=== PATIENT | male | born 1950 | race Caucasian/White ===

== ENCOUNTER → 2016-06-14 | Outpatient (CLI) | payer OTHER, MEDICAID ==
[~2016-06-14] MED LIST: GADOBUTROL 10 ML VIAL IVP ONE
[2016-06-14 10:12] LABS: CREATININE 0.6 mg/dL (0.7-1.3); GLOMERULAR FILTRATION RATE > 60
== END ==
LOC: FIMAGING 09:10
PROVIDERS: ATTEND Physician Assistant Medical
DX: M50.322 Other cervical disc degeneration at C5-C6 level (principal); M50.323 Other cervical disc degeneration at C6-C7 level; M50.20 Other cervical disc displacement, unspecified cervical region; M99.71 Connective tissue and disc stenosis of intervertebral foramina of cervical region; M48.02 Spinal stenosis, cervical region
CPT/HCPCS: 72156; A9585

== ENCOUNTER 2016-10-21 07:15 | Observation (INO) | payer OTHER, MEDICAID ==
--- NOTE | 2016-10-18 17:15 | GHP ---
[f rep st] PREOP HISTORY AND PHYSICAL DATE OF ADMISSION: 10/21/2016 PREOPERATIVE DIAGNOSIS: Left shoulder impingement, possible full-thickness rotator cuff tear, left. PLANNED PROCEDURE: Decompression versus rotator cuff repair, left shoulder. HISTORY OF PRESENT ILLNESS: The patient is a 66-year-old male who had a left total hip arthroplasty . He fell a few days postoperatively and sustained a periprosthetic fracture. This was revised and fixed. He then developed a postoperative wound infection that was washed out and I and D'd. Throu gh all this, he was having worsening shoulder pain. He has now sufficiently rehabbed his left hip r eplacement and revision. We imaged his bilateral shoulders, which did show partial thickness rotato r cuff tears and impingement anatomy. We tried cortisone injections and physical therapy; however, at this point, he is not very functional. He lives alone, and the decision has been made to proceed with decompression, possible cuff repair on the left. PAST MEDICAL HISTORY: Hypertension and COPD. PAST SURGICAL HISTORY: Left total hip in December of 2015 and then a revision in January of 2016. MEDICATIONS: Flexeril, diazepam, hydrochlorothiazide, lisinopril. ALLERGIES: Vicodin. REVIEW OF SYSTEMS: He gets a little bit of shortness of breath with exertion. Otherwise, review of systems is unremarkable. PHYSICAL EXAMINATION: VITAL SIGNS: Blood pressure is 149/93, heart rate 75, respiratory rate is 14 on room air. GENERAL: He is alert and oriented x3. HEENT: Normocephalic, atraumatic. Extraocul ar muscles intact. NECK: Supple. There is no lymphadenopathy. No JVD. CHEST: Clear to ausculta tion. CARDIOVASCULAR: Regular rate and rhythm. ABDOMEN: Soft, nontender, nondistended. EXTREMIT IES: Exam focused on the left extremity. He might have a little bit of supraspinatus atrophy on th e left. Prominence over the AC joint. Active range of motion to the left shoulder. He has full ex tension, 150 degrees of forward flexion, 60 degrees of internal and external rotation. Rotator cuff strength supraspinatus is 4- out of 5, infraspinatus 4- out of 5, subscapularis 4/5. He has a posi tive impingement sign, 1+ sulcus sign, negative apprehension sign. IMAGING: MRI is reviewed of the left shoulder. It does show partial thickness tearing of the supra spinatus tendon. He has a type 2 acromion with subacromial bursitis. Biceps tendon is in the groov e. There may be some intra-articular fraying and tearing at the anchor. ASSESSMENT: Left shoulder impingement, possible full-thickness cuff tear. PLAN: Long discussion with the patient. He is having a very difficult time with this shoulder and managing to remain independent with it. I think he did not get as much relief as I was hoping with the cortisone injection and physical therapy. Therefore, I think we should proceed with decompressi on, possible cuff repair of the left shoulder. I did explain to Elmo that if we do a rotator cuff re pair, he will need to be in a sling with abduction pillow for 4-6 weeks postoperatively. He underst ands that. We will start physical therapy a week after surgery. Other risks including infection an d continued pain were discussed. He understands these risks and wished to proceed. We will plan on surgery next Friday at the hospital. /[id number]/MODL
[2016-10-21] MEDS ORDERED: ceFAZolin 2 GM/DEXTROSE 100 ML IV ONE (08:12)
[2016-10-21] MEDS ORDERED: LR 1,000 ML IV ONE (08:26)
--- NOTE | 2016-10-21 08:28 | PDANEPAE ---
ANE History of Present Illness 66 year old male with L shoulder impingement and possible rotator cuff tear. ANE Past Medical History - Cardiovascular History Hx Hypertension: Yes Hx Arrhythmias: No Hx Chest Pain: No Hx Coronary Artery / Peripheral Vascular Disease: No Hx CHF / Valvular Disease: No Hx Palpitations: No Cardiovascular History Comment: CAD. BP controlled w/ doubled LIsinipril at 40mg. - Pulmonary History Hx COPD: Yes Hx Asthma/Reactive Airway Disease: No Hx Recent Upper Respiratory Infection: No Hx Oxygen in Use at Home: No O2 in Use at Home (L/minute): none Hx Sleep Apnea: No Sleep Apnea Screening Result - Last Documented: Positive Pulmonary History Comment: DIAGNOSED WITH COPD LAST YR. Pneumonia x2 2014,2016. - Neurologic History Hx Cerebrovascular Accident: No Hx Seizures: No Hx Dementia: No - Endocrine History Hx Diabetes: No Hypothyroid: No Hyperthyroid: No - Renal History Hx Renal Disorders: No - Liver History Hx Hepatic Disorders: No - Neurological & Psychiatric Hx Hx Neurological and Psychiatric Disorders: No - Cancer History Hx Cancer: No - Congenital Disorder History Hx Congenital Disorders: No - GI History Hx Gastrointestinal Disorders: No - Other Health History Other Health History: L shoulder pain - Chronic Pain History Chronic Pain: Yes (LOWER BACK AND BOTH HIPS) - Surgical History Prior Surgeries: L hip surgeries x3 (1st fx- then Septic Hip /tx w/ Doxycycline daily) ANE Review of Systems Review of Systems: No cough/fever/URI in past 2 weeks. - Exercise capacity METS (RN): 4 METS - Systems Constitutional: Reports: no symptoms Respiratory: Reports: no symptoms Gastrointestinal: Reports: no symptoms ANE Patient History - Allergies Allergies/Adverse Reactions: acetaminophen [From Vicodin] Allergy (Verified 10/18/16 16:56) hydrocodone [From Vicodin] Allergy (Verified 10/18/16 16:56) - Home Medications Home medications: home medication list seen and reviewed Home Medications: Aspirin [Aspirin 81mg (*)] 81 mg PO DAILY 01/31/16 [Last Taken 01/30/16] Multivitamins [Multivitamin (*)] 1 each PO HS 01/31/16 [Last Taken 01/29/16] Vitamin B Complex [B Complex] 1 each PO HS 01/31/16 [Last Taken 01/29/16] oxyCODONE IR [Oxycodone Ir (*)] 10 mg PO QID PRN 01/31/16 [Last Taken 01/30/16 12:00] Doxycycline Hyclate [Vibramycin 100 MG (*)] 100 mg PO DAILY 10/15/16 [Last Taken Unknown] Lisinopril [Zestril 40 mg (*)] 40 mg PO DAILY 10/15/16 [Last Taken Unknown] - Smoking Hx Smoking Status: Former smoker ANE Labs/Vital Signs - Labs - BMP Sodium: reviewed from August. Glucose: elevated (118) in August. - Vital Signs Blood Pressure: 181/97 (Pt reports his BP was lower at home, 140s/80s.) Heart Rate: 78 Respiratory Rate: 20 O2 Sat (%): 98 Height: 177.8 cm Weight: 70.307 kg ANE Physical Exam - Airway Neck exam: FROM Mallampati Score: Class 2 Mouth exam: dentures - Pulmonary Pulmonary: no respiratory distress, clear to auscultation - Cardiovascular Cardiovascular: regular rate and rhythym - ASA Status ASA Status: II ANE Anesthesia Plan Regional Anesthesia: single shot NB
[2016-10-21 08:40] VITALS: PULSE 78
[2016-10-21] MEDS ORDERED: MIDAZOLAM 2 MG/2 ML VIAL ONE (08:45)
--- NOTE | 2016-10-21 08:50 | PDHPUP ---
History & Physical Update H&P update statement: This history and physical update is based on an assessment of the patient which was completed after admission or registration (within 24 hours), but prior to the surgery/procedure. H&P update: H&P reviewed & patient examined, no change in patient's condition since H&P completed
[2016-10-21] MEDS ORDERED: MIDAZOLAM 2 MG/2 ML VIAL IVP ONE (08:56)
[2016-10-21] MEDS ORDERED: ROPIVACAINE HCL 150 MG/30 ML INJ ONE (09:05)
[2016-10-21] MEDS ORDERED: DEXAMETHASONE 4 MG/ML VIAL ONE ×2 (09:05)
[2016-10-21] MEDS ORDERED: fentaNYL 100 MCG/2 ML INJ ONE (09:11)
[2016-10-21] MEDS ORDERED: PROPOFOL/EMULSION 500 MG/50 ML BOTTLE IV ONE (09:19)
[2016-10-21] MEDS ORDERED: LIDO/EPI 1% **for epidural** 30 ML SDV ONE (09:21)
[2016-10-21] MEDS ORDERED: DIAZEPAM 10 MG/2 ML SYR ONE (09:41)
[2016-10-21] MEDS ORDERED: OXYCODONE/APAP 5/325 TAB PO PRN (11:03)
[2016-10-21] MEDS ORDERED: ENALAPRILAT DIHYDRATE 1.25 MG/ML VIAL IVP PRN (11:03)
[2016-10-21] MEDS ORDERED: ACETAMINOPHEN 500 MG TAB PO PRN (11:03)
[2016-10-21] MEDS ORDERED: PROMETHAZINE HCL 25 MG/ML INJ IVP PRN (11:03)
[2016-10-21] MEDS ORDERED: LR 500 ML IV PRN (11:03)
[2016-10-21] MEDS ORDERED: ONDANSETRON 4 MG/2 ML VIAL IVP PRN (11:03)
[2016-10-21] MEDS ORDERED: fentaNYL 100 MCG/2 ML INJ IVP PRN ×2 (11:03)
[2016-10-21] MEDS ORDERED: NALOXONE HCL 0.4 MG/ML INJ IVP PRN (11:03)
--- NOTE | 2016-10-21 11:31 | POSTOPPROG ---
Post Op Note Date of Operation: 10/21/16 Surgeon: Danis Butt Pin Ticket Machine Operator: Matias Fox Anesthesiologist: Nelson Anesthesia: GET(General Endotracheal) Pre-op Diagnosis: Lt RC tear Post-op Diagnosis: same Procedure: RC repair, SAD/DCE, Labral debridement Inf/Abcess present in the surg proc area at time of surgery?: No EBL: Minimal Complications: none
--- NOTE | 2016-10-21 11:34 | POSTANESTH ---
Post Anesthetic Evaluation Cardiovascular Status: Normal, Stable Respiratory Status: Normal, Stable Level of Consciousness/Mental Status: Can Participate in Eval Pain Control: Adequate, Prn Tx Ordered Nausea/Vomiting Control: Adequate, Prn Tx Ordered Complications Possibly Related to Anesthesia: None Noted
[2016-10-21 12:06] VITALS: RESP 14
[2016-10-21 12:31] VITALS: TEMP 97.5
[2016-10-21 13:36] VITALS: BP 155/89; O2SAT 94
--- NOTE | 2016-10-21 22:00 | GOP ---
[f rep st] OPERATIVE REPORT DATE OF OPERATION: 10/21/2016 SURGEON: Danis Butt MD COMMISSIONER OF RELOCATION SERVICES: Matias Fox PA-C. ANESTHESIA: Dr. Nelson, interscalene block with general. PREOPERATIVE DIAGNOSIS: Left shoulder rotator cuff tear. POSTOPERATIVE DIAGNOSIS: Left shoulder rotator cuff tear. PROCEDURE PERFORMED: 1. Arthroscopic rotator cuff repair. 2. Subacromial decompression. 3. Distal clavicle excision. 4. Labral debridement. FINDINGS: ESTIMATED BLOOD LOSS: Minimal. DESCRIPTION OF PROCEDURE: After appropriate informed consent was obtained, patient taken operating room, placed supine on the operating table. Timeout was performed. Patient was identified, correct site was identified. He received 2 g of Ancef preoperatively. Dr. Nelson administered an intersc maggi block followed by general endotracheal tube anesthesia. The patient was then positioned in th e beach-chair position with all bony prominences well padded. Left upper extremity was prepped and draped in the usual sterile fashion. I instilled the shoulder with 30 mL of normal saline and 30 mL of 1% lidocaine with epinephrine to a standard posterior portal. I made a small neftali incision, introduced the camera through a standard posterior portal, then obtained a standard anterior portal under direct visualization. Placed a 4.5 mm working cannula through that portal. Looking through the shoulder, he had extensive synovitis. The labrum was torn and frayed superiorly. The articular cartilage was in good shape with only mil d fraying on the glenoid. I gently debrided back the torn labrum with a motorized shaver. We then repositioned the camera in the subacromial space. Placed the anterior cannula superiorly into the subacromial space and obtain ed a standard lateral portal under direct visualization. Placed an 8 mm plastic cannula through nohemi t portal. Looking at the rotator cuff, the footprint was intact, however, had a split tear midsubst ance of the supraspinatus. There were few fibers left anteriorly. Cuff tissue overall was in poor quality. Type 2 acromion. Using the electrocautery device and bur, I cleaned up the subacromial space. We then placed sutures in a [id number] fashion, repaired the cuff back side to side. Those suture limbs were brought ou t through the lateral portal, and I placed 1 lateral anchor to back up my repair. Suture ends were cut. I then performed a subacromial decompression working through the lateral portal and then perfo rmed a distal clavicle excision working through the anterior superior portal. Instruments were withdrawn. I placed PRP 5 mL right at the [id number] repair and at the footprint . Portal incisions were closed with 3-0 nylon. I instilled 20 mL 0.5% Marcaine with epinephrine in to the shoulder joint. Sterile dressing was applied. Sling and abduction pillow were applied. Pat ient was awakened from anesthesia, taken to the recovery room in satisfactory condition. There were no immediate intraoperative complications. Matias Fox' assistance was required throughout the en tire case. COMPLICATIONS: None. DRAINS: None. IMPLANTS USED: Arthrex SwiveLock anchor 4.5 mm x1. HISTORY: The patient is a 66-year-old male with shoulder pain, failed to improve with conservative management. MRI was obtained which showed a possible rotator cuff tear, as well as impingement meghana sigrid of the shoulder. Decision was made to proceed with a decompression, possible cuff repair. /[id number]/MODL
== END 2016-10-21 13:45 | disposition home or self-care (01) ==
LOC: F3N 07:49
PROVIDERS: ADMIT Orthopaedic Surgery; ATTEND Orthopaedic Surgery
PROC: 0LQ24ZZ Repair Left Shoulder Tendon, Percutaneous Endoscopic Approach (ICD-10-PCS; principal; 2016-10-21 10:00)
PROC: 0PBB4ZZ Excision of Left Clavicle, Percutaneous Endoscopic Approach (ICD-10-PCS; principal; 2016-10-21 10:00)
PROC: 0MB24ZZ Excision of Left Shoulder Bursa and Ligament, Percutaneous Endoscopic Approach (ICD-10-PCS; principal; 2016-10-21 10:00)
DX: M75.102 Unspecified rotator cuff tear or rupture of left shoulder, not specified as traumatic (principal); M75.42 Impingement syndrome of left shoulder; I10 Essential (primary) hypertension
CPT/HCPCS: 29826; 29827; C1713; J0171; J0690; J1100; J2250; J2704; J2795; J3010

== ENCOUNTER → 2017-01-31 | Outpatient (CLI) | payer OTHER, MEDICAID | LOC: BHFA 14:00 | PROVIDERS: ATTEND Internal Medicine Cardiovascular Disease | DX: I73.9 Peripheral vascular disease, unspecified (principal) ==

== ENCOUNTER → 2017-02-20 | Outpatient (CLI) | payer OTHER, MEDICAID ==
[~2017-02-20] MED LIST changes: -GADOBUTROL 10 ML VIAL IVP ONE; +IOPAMIDOL (ISOVUE 370) 100 ML BTL IV ONE
== END ==
LOC: FIMAGING 11:42
PROVIDERS: ATTEND Surgery
DX: I70.203 Unspecified atherosclerosis of native arteries of extremities, bilateral legs (principal)
CPT/HCPCS: 75635; Q9967

== ENCOUNTER 2017-07-14 10:27 | Day surgery (SDC) | payer OTHER, MEDICAID ==
--- NOTE | 2017-07-13 08:34 | GHP ---
[f rep st] PREOP HISTORY AND PHYSICAL DATE OF ADMISSION: 07/14/2017 DATE OF PLANNED PROCEDURE: 07/14/2017. ADMISSION DIAGNOSIS: Right shoulder rotator cuff tear. PLANNED PROCEDURE: Rotator cuff repair. HISTORY OF PRESENT ILLNESS: The patient is a 67-year-old male, who has had longstanding bilateral shoulder pain. We have managed it with injections and physical therapy. However, he is having worsening pain and weakness in the right shoulder, he has undergone a left rotator cuff repair and done well with that. MRI showed a full-thickness rotator cuff tear on the right, and the decision has been made to proceed with a rotator cuff repair. PRIOR MEDICAL HISTORY: Hypertension, COPD, peripheral vascular disease. PRIOR SURGICAL HISTORY: Total hip arthroplasty with revision surgery, and followup I and D, for superficial infection. MEDICATIONS: Amlodipine 5 mg, gabapentin 100 mg, lisinopril 40 mg, hydrochlorothiazide 25 mg, oxycodone 10 mg. ALLERGIES: Vicodin. SOCIAL HISTORY: He lives alone. Does use alcohol daily. Former smoker, he smoked 1 pack per day. REVIEW OF SYSTEMS: GENERAL: No shortness of breath or chest pain. VITAL SIGNS : He is 5 feet 10 inches tall, weighs 160 pounds. Blood pressure is 142/89, heart rate 91, respiratory rate is 16, on room air. GENERAL: Alert and oriented x3. HEENT: Normocephalic, atraumatic. Extraocular muscles intact. NECK: Supple. There is no lymphadenopathy. No JVD. CHEST: Clear to auscultation. CARDIOVASCULAR: Regular rate and rhythm. ABDOMEN: Soft, nontender, nondistended. EXTREMITIES: Focusing on the right shoulder, does show a little atrophy in the supraspinatus fossa, active range of motion is limited to about 100 degrees forward flexion. Passively, I can get him to 150 degrees. He has 35 degrees of external rotation actively, passively I can get him to 75 degrees. Internal rotation I can get his thumb to L1. Rotator cuff strength, supraspinatus and infraspinatous are both 4-/5. Subscapularis 4+/5. He does have a positive impingement sign. 2+ radial pulse. IMAGING: MRI of the right shoulder performed in August of 2016, show some early degenerative changes in the glenohumeral joint. Near full-thickness tear of the distal supraspinatus tendon. Partial tear of the intra-articular portion of the long head of biceps tendon, and moderate degenerative changes in the AC joint. ASSESSMENT: Full-thickness cuff tear on the right with shoulder impingement. PLAN: Long discussion with the patient, I think initially in 2017, he had a partial tear, I think he has gone on to tear the cuff completely based on his clinical exam, which is the case that happened in the left shoulder. I plan of proceeding with a rotator cuff repair on the right. Decompression of biceps tenodesis. He will be in a sling and abduction pillow for 6 weeks postoperatively. Risks and benefits of the procedure, including infection, blood clots, and need for additional surgery, were all discussed. He understands these risks and wished to proceed. We will plan on surgery Friday at the hospital. /[id number]/MODL MTDD
[2017-07-14] MEDS ORDERED: THROMBIN (BOVINE) 5,000 UNIT VIAL TP ONE (10:50)
[2017-07-14] MEDS ORDERED: BUPIVACAINE/EPI 0.5% 30 ML SDV ONE (10:50)
[2017-07-14] MEDS ORDERED: CALCIUM CHLORIDE 1 GM/10 ML INJ ONE (10:50)
[2017-07-14] MEDS ORDERED: LIDO/EPI 1% **for epidural** 30 ML SDV ONE (10:51)
[2017-07-14] MEDS ORDERED: EPINEPHrine 30 MG/30 ML MDV (0.1 MG/0.1 ML) ONE (10:51)
[2017-07-14] MEDS ORDERED: ceFAZolin 2 GM/SWFI 2 GM/20 ML SYR IVP ONE (11:25)
[2017-07-14] MEDS ORDERED: LIDOCAINE 1% 2 ML INJ ID PRN (11:26)
[2017-07-14] MEDS ORDERED: LR 1,000 ML IV ONE (11:26)
--- NOTE | 2017-07-14 13:55 | PDANEPAE ---
ANE History of Present Illness Patient presents for R rotator cuff repair ANE Past Medical History - Cardiovascular History Hx Hypertension: Yes Hx Arrhythmias: No Hx Chest Pain: No Hx Coronary Artery / Peripheral Vascular Disease: Yes Hx CHF / Valvular Disease: No Hx Palpitations: No Cardiovascular History Comment: severe PVD,CAD - Pulmonary History Hx COPD: Yes Hx Asthma/Reactive Airway Disease: No Hx Recent Upper Respiratory Infection: No Hx Oxygen in Use at Home: No Hx Sleep Apnea: No Sleep Apnea Screening Result - Last Documented: Positive Pulmonary History Comment: DIAGNOSED WITH COPD LAST YR - Neurologic History Hx Cerebrovascular Accident: No Hx Seizures: No Hx Dementia: No - Endocrine History Hx Diabetes: No - Renal History Hx Renal Disorders: No - Liver History Hx Hepatic Disorders: No - Neurological & Psychiatric Hx Hx Neurological and Psychiatric Disorders: Yes Neurological / Psychiatric History Comment: POLYNEUROPATHY - Cancer History Hx Cancer: No - Congenital Disorder History Hx Congenital Disorders: No - GI History Hx Gastrointestinal Disorders: No - Other Health History Other Health History: L shoulder pain - Chronic Pain History Chronic Pain: Yes (BILAT HIPS LOWER BACK) - Surgical History Prior Surgeries: left hip 3 surgeries including infection. left shoulder ANE Review of Systems Review of Systems: - Exercise capacity METS (RN): 4 METS ANE Patient History - Allergies Allergies/Adverse Reactions: hydrocodone [From Vicodin] Allergy (Verified 06/27/17 10:32) nausea - Home Medications Home medications: home medication list seen and reviewed Home Medications: Aspirin [Aspirin 81mg (*)] 01/31/16 [Last Taken 07/07/17] Multivitamins [Multivitamin (*)] 01/31/16 [Last Taken 1 Week Ago ~10/14/16] Vitamin B Complex [B Complex] 01/31/16 [Last Taken 07/07/17] oxyCODONE IR [Oxycodone Ir (*)] 01/31/16 [Last Taken 07/13/17 23:55] Lisinopril [Zestril 40 mg (*)] 10/15/16 [Last Taken 07/13/17 07:00] Gabapentin 06/27/17 [Last Taken 07/14/17 07:00] Hydrochlorothiazide 06/27/17 [Last Taken 07/13/17 07:00] Keflex 06/27/17 [Last Taken Unknown] - NPO status NPO Status: no food or drink >8 hours NPO Since - Liquids (Date): 07/14/17 NPO Since - Liquids (Time): 09:45 NPO Since - Solids (Date): 07/13/17 NPO Since - Solids (Time): 13:00 - Smoking Hx Smoking Status: Former smoker - Family Anes Hx Family Hx Anesthesia Complications: none ANE Labs/Vital Signs - Vital Signs Blood Pressure: 114/87 Heart Rate: 116 Respiratory Rate: 16 O2 Sat (%): 95 Height: 177.8 cm Weight: 68.039 kg ANE Physical Exam - Airway Neck exam: FROM Mallampati Score: Class 2 Mouth exam: poor dentition - Pulmonary Pulmonary: no respiratory distress - Cardiovascular Cardiovascular: regular rate and rhythym - ASA Status ASA Status: III ANE Anesthesia Plan Anesthesia Plan: GA w LMA Regional Anesthesia: single shot NB (RBA discussed)
[2017-07-14] MEDS ORDERED: MIDAZOLAM 2 MG/2 ML VIAL ONE (14:07)
[2017-07-14] MEDS ORDERED: PROPOFOL 200 MG/20 ML VIAL ONE (14:07)
[2017-07-14] MEDS ORDERED: fentaNYL 100 MCG/2 ML INJ ONE (14:07)
[2017-07-14] MEDS ORDERED: ONDANSETRON 4 MG/2 ML VIAL ONE (15:01)
[2017-07-14] MEDS ORDERED: DEXAMETHASONE 4 MG/ML VIAL ONE (15:01)
--- NOTE | 2017-07-14 15:30 | POSTOPPROG ---
Post Op Note Date of Operation: 07/14/17 Surgeon: Danis Butt Color Receiver: DAMIEN Bro Anesthesia: GET(General Endotracheal) Pre-op Diagnosis: RT shoulder impingement poss cuff tear Post-op Diagnosis: RT shoulder impingement Procedure: Labral debridement, RC debridement, SAD/DCE Findings: partial thickness RC tear Inf/Abcess present in the surg proc area at time of surgery?: No EBL: Minimal Complications: none
[2017-07-14] MEDS ORDERED: LR 500 ML IV PRN (15:53)
[2017-07-14] MEDS ORDERED: fentaNYL 100 MCG/2 ML INJ IVP PRN (15:53)
[2017-07-14] MEDS ORDERED: ONDANSETRON 4 MG/2 ML VIAL IVP PRN (15:53)
[2017-07-14] MEDS ORDERED: HYDROCODONE/APAP 5/325 TAB PO PRN (15:53)
[2017-07-14] MEDS ORDERED: NALOXONE HCL 0.4 MG/ML INJ IVP PRN (15:53)
--- NOTE | 2017-07-14 15:54 | POSTANESTH ---
Post Anesthetic Evaluation Cardiovascular Status: Similar to Pre-Op Cond Respiratory Status: Similar to Pre-op Cond. Level of Consciousness/Mental Status: Alert and Oriented Pain Control: Adequate, Prn Tx Ordered Nausea/Vomiting Control: Adequate, Prn Tx Ordered Complications Possibly Related to Anesthesia: None Noted
[2017-07-14 17:04] VITALS: BP 123/80
--- NOTE | 2017-07-14 21:03 | GOP ---
[f rep st] OPERATIVE REPORT DATE OF OPERATION: 07/14/2017 SURGEON: Danis Butt MD FLOOR INSTALLER: Boaz Judd. ANESTHESIA: Interscalene block with general. ANESTHESIOLOGIST: Dr. Soni. PREOPERATIVE DIAGNOSIS: Right shoulder impingement, possible full-thickness cuff tear. POSTOPERATIVE DIAGNOSIS: Right shoulder impingement with partial-thickness cuff tear. PROCEDURE PERFORMED: FINDINGS: ESTIMATED BLOOD LOSS: Minimal. INDICATIONS: Ruddy is a 67-year-old male, who has been struggling with right shoulder pain on and o ff for several years. He had an MRI about a year ago which did show a partial-thickness cuff tear. He has developed worsening weakness over the last 3 months or so, and decision was made to proceed wi th a decompression and possible rotator cuff repair. DESCRIPTION OF PROCEDURE: After appropriate informed consent was obtained, patient was taken the ope rating room, placed supine on the operating table. Time-out was performed. Patient was identified, correct site was identified. He received 2 g of Ancef preoperatively. Following an interscalene ner ve block, general endotracheal tube anesthesia was administered. He was positioned in the beach kaila r position with all bony prominences well padded. Right upper extremity was prepped and draped in us ual sterile fashion. I instilled 30 mL of 1% lidocaine with epinephrine and 30 mL of normal saline t hrough a standard posterior portal. I made a small neftali incision and introduced the camera through th e standard posterior portal. I then obtained a standard anterior portal under direct visualization. A 4.5 mm working cannula was placed through the anterior portal. He had extensive degenerative tear ing and fraying of both the superior and anterior aspect of the labrum. This was debrided back to a stable smooth rim of tissue. Looking at the undersurface of the cuff, he had some undersurface teari ng of the supraspinatus, but no full-thickness tear was identified. I debrided the undersurface of t he rotator cuff. Biceps tendon was then tacked. I repositioned the camera into the subacromial space and obtained a standard lateral portal under direct visualization. I examined the cuff from the bur walter surface. There was no tearing on the bursal surface, but there was extensive bursitis and synovi tis in the subacromial space. I debrided this back with a motorized shaver and electrocautery device . He had moderate to severe AC joint arthrosis, and I debrided that with a bur and resected 5 mm of distal clavicle working through an anterior superior portal. I then repositioned the bur through the lateral portal and performed a subacromial decompression. Instruments were withdrawn. Portal incis ions were closed with 3-0 nylon. I did not instill any additional local into the shoulder. Osbaldo maldonado's assistance was required throughout the entire case for positioning of the arm. COMPLICATIONS: None. DRAINS: None. /[id number]/MODL
== END 2017-07-14 17:22 | disposition home or self-care (01) ==
LOC: FSGY 10:27
PROVIDERS: ATTEND Orthopaedic Surgery
DX: M25.811 Other specified joint disorders, right shoulder (principal); M75.102 Unspecified rotator cuff tear or rupture of left shoulder, not specified as traumatic; I10 Essential (primary) hypertension; M75.51 Bursitis of right shoulder; M65.811 Other synovitis and tenosynovitis, right shoulder; M19.011 Primary osteoarthritis, right shoulder
CPT/HCPCS: J0171; J0690; J1100; J2250; J2405; J2704; J3010

== ENCOUNTER 2017-09-03 13:05 | Inpatient (IN) | payer OTHER, MEDICAID ==
--- NOTE | 2017-09-02 14:51 | GHP ---
[f rep st] PREOP HISTORY AND PHYSICAL DATE OF ADMISSION: 09/03/2017 DATE OF PLANNED PROCEDURE: 09/03/2017. ADMITTING DIAGNOSIS: Avascular necrosis, right hip. PLANNED PROCEDURE: Right total hip arthroplasty. HISTORY OF PRESENT ILLNESS: The patient is a 67-year-old male who has undergone a left total hip art hroplasty for AVN in that hip, but he has known AVN in the right hip. He has had worsening pain over the last 2 weeks and inability to bear weight. X-rays show some early collapse of the femoral head and sclerosis of the femoral head. Decision was made to proceed with a total hip arthroplasty on the right. PAST MEDICAL HISTORY: Hypertension, COPD, peripheral vascular disease. PAST SURGICAL HISTORY: Total hip arthroplasty with revision and I and D, bilateral shoulder surgery, arthroscopies. MEDICATIONS: Amlodipine 5 mg, gabapentin 100 mg, lisinopril 40 mg, hydrochlorothiazide 25 mg, oxycod one 10 mg. ALLERGIES: Vicodin gives him hives. SOCIAL HISTORY: He lives alone. Drinks alcohol daily. Is a previous smoker, 1 pack per day. REVIEW OF SYSTEMS: No shortness of breath or chest pain. Otherwise, review of systems is unremarkab le. PHYSICAL EXAM: VITAL SIGNS: He is 5 feet 10 inches tall, weighs 160 pounds. Blood pressure is 130/ 72, heart rate 76. Respiratory rate is 16 on room air. He is alert and oriented x3. HEENT: Normoc ephalic, atraumatic. Extraocular muscles are intact. NECK: Supple. There is no lymphadenopathy. No JVD. CHEST: Clear to auscultation. CARDIOVASCULAR: Regular rate and rhythm. ABDOMEN: Soft, n ontender, nondistended. EXTREMITIES: Right hip exam shows the skin to be intact. He is tender over the greater trochanter. Limited range of motion due to pain, and this is mainly in his groin. Uppe r leg compartments, as well as lower leg compartments are soft, without tenderness. He has 5/5 ankle dorsiflexion, plantar flexion strength, 1+ dorsalis pedis, tibial posterior pulses. X-RAYS: Two views of his hip are compared to previous x-rays and MRI. He has had further sclerosis of the femoral head and some early collapse superiorly. ASSESSMENT: Avascular necrosis, right hip. PLAN: I recommend proceeding with a total hip arthroplasty through an anterior approach. He had a f all early on postoperatively with the left hip, so we are going to be very cautious with this hip. R isks and benefits, including infection, blood clots, and ongoing pain were discussed with the patient . He understands these risks and wished to proceed. His preoperative paperwork was completed. We w ill plan on surgery Friday at [facility]. /[id number]/MODL
[2017-09-03] MEDS ORDERED: ceFAZolin 2 GM/SWFI 2 GM/20 ML SYR IVP ONE (13:40)
[2017-09-03] MEDS ORDERED: LR 1,000 ML IV ONE (13:41)
[2017-09-03] MEDS ORDERED: BUPIVACAINE/EPI 0.5% 30 ML SDV ONE (14:06)
[2017-09-03] MEDS ORDERED: ceFAZolin 2 GM/DEXTROSE 100 ML IV ONE (14:15)
[2017-09-03] MEDS ORDERED: MIDAZOLAM 2 MG/2 ML VIAL ONE (14:42)
[2017-09-03] MEDS ORDERED: fentaNYL 100 MCG/2 ML INJ ONE ×2 (14:43→17:34)
[2017-09-03] MEDS ORDERED: PROPOFOL/EMULSION 500 MG/50 ML BOTTLE IV ONE (14:48)
[2017-09-03] MEDS ORDERED: MIDAZOLAM 2 MG/2 ML VIAL IVP ONE (15:04)
--- NOTE | 2017-09-03 15:08 | PDANEPAE ---
ANE History of Present Illness 67 year old male for right anterior hip arthroplasty. History of HTN, PVD, Neuropathy. ANE Past Medical History - Cardiovascular History Hx Hypertension: Yes Hx Arrhythmias: No Hx Chest Pain: No Hx Coronary Artery / Peripheral Vascular Disease: Yes Hx CHF / Valvular Disease: No Hx Palpitations: No Cardiovascular History Comment: severe PVD,CAD - Pulmonary History Hx COPD: Yes Hx Asthma/Reactive Airway Disease: No Hx Recent Upper Respiratory Infection: No Hx Oxygen in Use at Home: No Hx Sleep Apnea: No Sleep Apnea Screening Result - Last Documented: Positive Pulmonary History Comment: DIAGNOSED WITH COPD LAST YR - Neurologic History Hx Cerebrovascular Accident: No Hx Seizures: No Hx Dementia: No - Endocrine History Hx Diabetes: No - Renal History Hx Renal Disorders: No - Liver History Hx Hepatic Disorders: No - Neurological & Psychiatric Hx Hx Neurological and Psychiatric Disorders: Yes Neurological / Psychiatric History Comment: POLYNEUROPATHY - Cancer History Hx Cancer: No - Congenital Disorder History Hx Congenital Disorders: No - GI History Hx Gastrointestinal Disorders: No - Other Health History Other Health History: L shoulder pain. partials lower,upper - Chronic Pain History Chronic Pain: Yes (bilat feet) - Surgical History Prior Surgeries: left hip 3 surgeries including infection. left shoulder ANE Review of Systems Review of systems is: negative Review of Systems: - Exercise capacity METS (RN): 4 METS ANE Patient History - Allergies Allergies/Adverse Reactions: No Allergies [NKDA] Allergy (Verified 09/03/17 14:03) - Home Medications Home Medications: Aspirin [Aspirin 81mg (*)] 81 mg PO DAILY 01/31/16 [Last Taken 1 Week Ago ~08/27] oxyCODONE IR [Oxycodone Ir (*)] 10 mg PO TID 01/31/16 [Last Taken 09/03/17] Lisinopril [Zestril 40 mg (*)] 40 mg PO DAILY 10/15/16 [Last Taken 09/02/17] Gabapentin [Neurontin 300 MG (*)] 300 mg PO BID #0 06/27/17 [Last Taken 09/03/17 ] Hydrochlorothiazide [HCTZ (*)] 25 mg PO DAILY #0 06/27/17 [Last Taken 09/02/17] amLODIPine BESYLATE [Norvasc 5 mg (*)] 5 mg PO DAILY 08/28/17 [Last Taken ] Cephalexin [Keflex (*)] 500 mg PO DAILY 09/02/17 [Last Taken 09/03/17] Cyanocobalamin [Vitamin B12 (*)] 1,000 mcg PO DAILY 09/02/17 [Last Taken 1 Week Ago ~08/27/17] - NPO status NPO Since - Liquids (Date): 09/03/17 NPO Since - Liquids (Time): 11:45 NPO Since - Solids (Date): 09/02/17 NPO Since - Solids (Time): 04:00 - Smoking Hx Smoking Status: Former smoker - Family Anes Hx Family Hx Anesthesia Complications: none ANE Labs/Vital Signs - Vital Signs Blood Pressure: 111/74 Heart Rate: 71 Respiratory Rate: 18 O2 Sat (%): 98 Height: 177.8 cm Weight: 70.307 kg ANE Physical Exam - Airway Neck exam: decreased ROM Mallampati Score: Class 2 Mouth exam: poor dentition - Pulmonary Pulmonary: no respiratory distress - Cardiovascular Cardiovascular: regular rate and rhythym - ASA Status ASA Status: III ANE Anesthesia Plan Anesthesia Plan: spinal
[2017-09-03] MEDS ORDERED: MEPERIDINE 25 MG/0.5 ML AMP IVP PRN (15:12)
[2017-09-03] MEDS ORDERED: ONDANSETRON 4 MG/2 ML VIAL IVP PRN ×2 (15:12→16:35)
[2017-09-03] MEDS ORDERED: HYDROCODONE/APAP 5/325 TAB PO PRN (15:12)
[2017-09-03] MEDS ORDERED: NALOXONE HCL 0.4 MG/ML INJ IVP PRN (15:12)
[2017-09-03] MEDS ORDERED: oxyCODONE IR 5 MG TAB PO PRN (15:12)
[2017-09-03] MEDS ORDERED: LABETALOL HCL 5 MG/ML 20 ML MDV IVP PRN (15:12)
[2017-09-03] MEDS ORDERED: DEXAMETHASONE 4 MG/ML VIAL IVP PRN (15:12)
[2017-09-03] MEDS ORDERED: ALBUTEROL 3 ML DEYVIAL IH PRN (15:12)
[2017-09-03] MEDS ORDERED: CALCIUM CHLORIDE 1 GM/10 ML INJ ONE (15:35)
[2017-09-03] MEDS ORDERED: THROMBIN (BOVINE) 5,000 UNIT VIAL TP ONE (15:35)
[2017-09-03] MEDS ORDERED: PROMETHAZINE HCL 25 MG SUPPR PR PRN (16:35)
[2017-09-03] MEDS ORDERED: TEMAZEPAM 15 MG CAP PO PRN (16:35)
[2017-09-03] MEDS ORDERED: MAGNESIUM HYDROXIDE 30 ML UDCUP PO PRN (16:35)
[2017-09-03] MEDS ORDERED: PROMETHAZINE HCL 25 MG/ML INJ IVP PRN (16:35)
[2017-09-03] MEDS ORDERED: NS 500 ML IV PRN (16:35)
[2017-09-03] MEDS ORDERED: ONDANSETRON DISINTEGRATING 4 MG TAB PO PRN (16:35)
[2017-09-03] MEDS ORDERED: BISACODYL 10 MG SUPP PR PRN (16:35)
[2017-09-03] MEDS ORDERED: POLYETHYLENE GLYCOL 3350 17 GM PKT PO PRN (16:35)
[2017-09-03] MEDS ORDERED: METOCLOPRAMIDE 10 MG/2 ML VIAL IVP PRN (16:35)
[2017-09-03] MEDS ORDERED: diphenhydrAMINE 25 MG CAP PO PRN (16:35)
[2017-09-03] MEDS ORDERED: DIPHENOXYLATE/ATROPINE LOMOTIL 1 TAB PO PRN (16:35)
[2017-09-03] MEDS ORDERED: LACTULOSE 20 GM/30 ML UDCUP PO PRN (16:35)
--- NOTE | 2017-09-03 16:35 | POSTOPPROG ---
Post Op Note Date of Operation: 09/03/17 Surgeon: Danis Butt Oliver Filter Operator: Michael Espinosa Anesthesiologist: Meagan Anesthesia: GET(General Endotracheal) Pre-op Diagnosis: AVN RT hip Post-op Diagnosis: same Procedure: RT GARRY viaanterior approach Inf/Abcess present in the surg proc area at time of surgery?: No EBL: 100-500 Complications: none
[2017-09-03] MEDS ORDERED: KETOROLAC 15 MG/1 ML SDV ONE (17:33)
[2017-09-03] MEDS ORDERED: oxyCODONE IR 5 MG TAB ONE (17:34)
[2017-09-03] MEDS: KETOROLAC 15 MG/1 ML SDV IVP SCH ×2 (17:39→23:13)
[2017-09-03] MEDS: fentaNYL 100 MCG/2 ML INJ IVP PRN ×2 (17:39→17:49)
[2017-09-03] MEDS ORDERED: MEPERIDINE 25 MG/0.5 ML AMP ONE (17:51)
--- NOTE | 2017-09-03 18:27 | GOP ---
[f rep st] OPERATIVE REPORT DATE OF OPERATION: 09/03/2017 SURGEON: Danis Butt MD MACHINE VENEER REPAIRER: Darrel Espinosa, SET AND EXHIBIT DESIGNER, [facility]. ANESTHESIA: Spinal. ANESTHESIOLOGIST: Dr. Rhodes PREOPERATIVE DIAGNOSIS: Avascular necrosis right femoral head. POSTOPERATIVE DIAGNOSIS: Avascular necrosis right femoral head. PROCEDURE PERFORMED: Right total hip arthroplasty through an anterior approach. FINDINGS: ESTIMATED BLOOD LOSS: 200 cc. INDICATIONS: The patient is a 67-year-old male with bilateral AVN of his hips. He has undergone lef t total hip arthroplasty. He is having increasing symptoms on the right. The decision was made to p roceed with a right total hip arthroplasty. DESCRIPTION OF PROCEDURE: After appropriate informed consent was obtained, the patient was taken to the operating room, placed supine on the operating table. Time-out was performed. Patient was ident ified, correct site was identified, matched with radiographs that were available in the room. He rec eived 2 g of Ancef preoperatively. Following a spinal anesthetic, he was positioned on the operating room table with the right leg positioned in the arch leg jeffrey. Left leg placed in a well-padded w ell leg jeffrey. All bony prominence were well padded. Right hip was prepped and draped in usual ej rile fashion. I made a standard anterior incision. Bleeding was controlled electrocautery. I incised the fascia o monserrat the TFL and bluntly dissected into the interval, identified the femoral circumflex vessels. Thes e were controlled with the Etactsamantys cautery device. Then, using a Andrade elevator, I elevated the so ft tissues off the anterior aspect of the femoral head and neck. Retractors were placed around the i nferior and superior aspect of the femoral neck. I incised the capsule and excised most of it. Retr actors were placed around the femoral neck. Using oscillating saw, I made my neck cut. Then, using a corkscrew device, removed the head and neck. The retractors were then placed around the acetabulum . Remainder of the labrum was removed with sharp dissection. Osteophytes removed with rongeurs. Head measured a 50. We started reaming a size 49, reamed up to a size 55, trial that with good purch ase, and placed our final cup, tapped it into place, confirmed its position with AP fluoroscopic imag ing. Tapped our neutral liner into place. We then turned our attention to the femur. Retractors were placed around the greater trochanter and lesser trochanter. Remaining posterior capsule was excised. Using a rongeur, I removed remaining po sterior bone. Hip was then externally rotated, dropped to the floor, and adducted 30 degrees. I the n used our femoral canal finding device and entered the femoral canal. I then broached up to a size 7. We trialed a neutral and a -5 head by bringing the leg back from abduction and full extension int o neutral positioning. The -5 head gave us better muslim of leg lengths, still with excellent s tability. Trial implants were removed. Final implants were tapped into place. Hip was relocated 1 final time. Final imaging was obtained, which again showed good positioning of the implants and sati sfactory muslim of leg lengths. Wound was irrigated. The fascia was closed with 0 Vicryl. I instilled 10 cc of PRP over the cut bon e surfaces. Superficial layers closed with 2-0 Vicryl. Skin was closed with a 3-0 Quill subcuticula r stitch. Steri-Strips were applied. I instilled 30 cc 0.5% Marcaine with epinephrine around the in cision. Occlusive dressing was applied. Patient was awakened from anesthesia, taken to the recovery room in satisfactory condition. There were no immediate intraoperative complications. Michael Espinosa 's assistance was required throughout the entire case. IMPLANTS USED: Trident II Theodore size 56 cup, zero poly, Biolox ceramic -5 head, and Accolade II hi gh offset size 7 press-fit stem. COMPLICATIONS: None. DRAINS: None. /[id number]/MODL
[2017-09-03] MEDS: ACETAMINOPHEN 325 MG TAB PO SCH ×2 (18:41→23:12)
[2017-09-03] MEDS: CYCLOBENZAPRINE 10 MG TAB PO PRN (18:41)
[2017-09-03] MEDS: LR 1,000 ML IV SCH (18:41)
[2017-09-03] MEDS: oxyCODONE IR 5 MG TAB PO PRN ×2 (18:41→23:12)
[2017-09-03] MEDS: GABAPENTIN 300 MG CAP PO SCH (20:51)
[2017-09-03] MEDS: FAMOTIDINE 20 MG TAB PO SCH (20:51)
[2017-09-03] MEDS: SENNOSIDES/DOCUSATE SODIUM TAB PO SCH (20:51)
[2017-09-03] MEDS: ceFAZolin 2 GM/DEXTROSE 100 ML IV SCH (23:12)
[2017-09-04] MEDS: LR 1,000 ML IV SCH (03:44)
[2017-09-04] MEDS: CYCLOBENZAPRINE 10 MG TAB PO PRN (03:49)
[2017-09-04] MEDS: oxyCODONE IR 5 MG TAB PO PRN ×4 (03:50→21:36)
[2017-09-04] MEDS: ceFAZolin 2 GM/DEXTROSE 100 ML IV SCH (05:50)
[2017-09-04] MEDS: ACETAMINOPHEN 325 MG TAB PO SCH ×4 (05:50→23:59)
[2017-09-04] MEDS: KETOROLAC 15 MG/1 ML SDV IVP SCH ×2 (05:50→12:52)
--- NOTE | 2017-09-04 08:04 | SOAPPROG ---
SOAP Progress Note Assessment/Plan: Assessment: Plan: 09/04/17 08:03 POD#1 RT GARRY WBAT PT/OT xarelto possile dc Friday Subjective: slept o/n pain controlled Objective: dressing c/d/i thigh soft 5/5 df/pf 1+ dp/tp pulses leg lengths equal Vital Signs Temp Pulse Resp BP Pulse Ox 36.4 C 81 16 110/73 96 09/04/17 07:45 09/04/17 07:45 09/04/17 07:45 09/04/17 07:45 09/04/17 07:45 Laboratory Results 09/04/17 04:30 09/03/17 09/04/17 09/05/17 05:59 05:59 05:59 Intake Total 2931 Output Total 900 Balance 2030 ICD10 Worksheet Patient Problems: Problems Problem Status Onset Broken internal left hip prosthesis Acute Chronic Disease Mgmt/Transitional Care Acute Closed left hip fracture Acute Injury of left hip Acute Other injury of muscle(s) and tendon(s) of the rotator cuff of left shoulder, subsequent encounter Acute Pleural effusion Acute
[2017-09-04] MEDS: CYANO/VITAMIN B12 1000 MCG TAB PO SCH (09:02)
[2017-09-04] MEDS: FAMOTIDINE 20 MG TAB PO SCH ×2 (09:02→20:46)
[2017-09-04] MEDS: GABAPENTIN 300 MG CAP PO SCH ×2 (09:02→20:46)
[2017-09-04] MEDS: CEPHALEXIN 500 MG CAP PO SCH (09:03)
[2017-09-04] MEDS: amLODIPine BESYLATE 5 MG TAB PO SCH (09:03)
[2017-09-04] MEDS: LISINOPRIL 40 MG TAB PO SCH (09:03)
[2017-09-04] MEDS: HYDROCHLOROTHIAZIDE 25 MG TAB PO SCH (09:03)
[2017-09-04] MEDS: RIVAROXABAN 10 MG TAB PO SCH (09:03)
[2017-09-04] MEDS: SENNOSIDES/DOCUSATE SODIUM TAB PO SCH ×2 (09:03→20:46)
--- NOTE | 2017-09-04 10:28 | ASMTCMCOM ---
CM Note CM Note Notes: Chart reviewed. Per therapy SNF is recommendation for dc plan. Met with patient who adamantly refuses to go to SNF at this point. He states surgery just yesterday and he needs some time. He is agreeable to [facility]. He has no preference regarding [facility] company, he shares he lives alone and is in stages of unpacking as he recently moved into new apartment that has no stairs. Will at minimum need PT and OT at home. Referral to [facility]. CM to follow. Plan: SNF rehab versus home with home health. Date Signed: 09/04/2017 10:27 AM Electronically Signed By:Balbina Etienne RN
--- NOTE | 2017-09-04 11:07 | PDMN ---
Medical Necessity Medical necessity: IP surgery per [facility] cpt 00703
[2017-09-05] MEDS: ACETAMINOPHEN 325 MG TAB PO SCH ×2 (05:44→13:24)
[2017-09-05] MEDS: oxyCODONE IR 5 MG TAB PO PRN ×2 (05:44→13:23)
[2017-09-05] MEDS: FAMOTIDINE 20 MG TAB PO SCH (09:05)
[2017-09-05] MEDS: CEPHALEXIN 500 MG CAP PO SCH (09:05)
[2017-09-05] MEDS: GABAPENTIN 300 MG CAP PO SCH (09:05)
[2017-09-05] MEDS: RIVAROXABAN 10 MG TAB PO SCH (09:05)
[2017-09-05] MEDS: CYANO/VITAMIN B12 1000 MCG TAB PO SCH (09:05)
[2017-09-05] MEDS: LISINOPRIL 40 MG TAB PO SCH (09:06)
[2017-09-05] MEDS: HYDROCHLOROTHIAZIDE 25 MG TAB PO SCH (09:06)
[2017-09-05] MEDS: amLODIPine BESYLATE 5 MG TAB PO SCH (09:06)
[2017-09-05] MEDS: SENNOSIDES/DOCUSATE SODIUM TAB PO SCH (09:07)
[2017-09-05 09:12] VITALS: BP 98/68
--- NOTE | 2017-09-05 10:26 | SOAPPROG ---
REID Progress Note Assessment/Plan: Assessment: Plan: 09/04/17 08:03 POD#1 RT GARRY WBAT PT/OT xarelto possile dc Friday09/05/17 10:25 POD#2 RT GARRY DC Today [id number] mg x 21 days F/U [facility] 2 weeks Subjective: feeling better walking with PT Objective: dressing c/d/i leg lengths equal calf soft 5/5 df/pf Vital Signs Temp Pulse Resp BP Pulse Ox 36.7 C 78 12 98/68 L 97 09/05/17 07:20 09/05/17 07:20 09/05/17 07:20 09/05/17 08:40 09/05/17 07:20 Laboratory Results 09/05/17 04:30 09/04/17 09/05/17 09/06/17 05:59 05:59 05:59 Intake Total 2931 875 Output Total 900 1800 Balance 1 - ICD10 Worksheet Patient Problems: Problems Problem Status Onset Broken internal left hip prosthesis Acute Chronic Disease Mgmt/Transitional Care Acute Closed left hip fracture Acute Injury of left hip Acute Other injury of muscle(s) and tendon(s) of the rotator cuff of left shoulder, subsequent encounter Acute Pleural effusion Acute
--- NOTE | 2017-09-05 11:52 | PDIAF ---
- Diagnosis Code Status: Full Code - Medication Management Discharge Medications: Medications to Continue on Transfer Lisinopril [Zestril 40 mg (*)] 40 mg PO DAILY 10/15/16 [Last Taken 09/02/17] Gabapentin [Neurontin 300 MG (*)] 300 mg PO BID #0 06/27/17 [Last Taken 09/03/17 ] Hydrochlorothiazide [HCTZ (*)] 25 mg PO DAILY #0 06/27/17 [Last Taken 09/02/17] amLODIPine BESYLATE [Norvasc 5 mg (*)] 5 mg PO DAILY 08/28/17 [Last Taken ] Cephalexin [Keflex (*)] 500 mg PO DAILY 09/02/17 [Last Taken 09/03/17] Cyanocobalamin [Vitamin B12 (*)] 1,000 mcg PO DAILY 09/02/17 [Last Taken 1 Week Ago ~08/27/17] Rivaroxaban [Xarelto 10mg (*)] 10 mg PO DAILY tab 09/05/17 [Last Taken Unknown] oxyCODONE IR [Oxycodone Ir (*)] 10 mg PO Q4-6PRN PRN #40 tab 09/05/17 [Last Taken Unknown] Discharge Medications: Refer to the Discharge Home Medication list for PRN reason. - Orders Services needed: Home Care, Physical Therapy, Occupational Therapy Home Care Face to Face: I certify that this patient was under my care and that I had the required [id number] encounter meeting the encounter requirements on the discharge day. My findings support the fact that the patient is homebound as defined in Home Care Face to Face Continued: CMS Chapter 7 Medicare Benefits Manual 30.1.1 , The condition of the patient is such that there exists a normal inability to leave home and consequently, leaving home would require a considerable and taxing effort. Isolation Type: None Diet Recommendation: no restrictions on diet Diet Texture: Regular Texture Diet Wound Care Instructions: keep covered for 1st 7 days for showers Activity/Weight Bearing Restrictions: WBAT. no hip precautions - Follow Up Care Current Providers and Referrals: Juli Sanford MD [Primary Care Provider] - Danis Butt MD [Medical Doctor] -
--- NOTE | 2017-09-05 14:49 | ASMTCMCOM ---
CM Note CM Note Notes: Pt medically stable for d/c with [facility] PT/OT. Orders to be obtained via [employer]. Date Signed: 09/05/2017 02:48 PM Electronically Signed By:MORRIS Arce
--- NOTE | 2017-09-05 16:07 | ASDISCHSUM ---
Discharge Information Plan Status:Home with Home Health Medically Cleared to Leave: Discharge Date:09/05/2017 04:01 PM D/C Disposition:Home Health Service ADT D/C Disposition:Home, Routine, Self-Care Projected Discharge Date:09/05/2017 11:00 AM Transportation at D/C: Discharge Delay Reason: Follow-Up Date:09/05/2017 11:00 AM Discharge Slot: Final Diagnosis: Placement Information Referral Type:*Home Health Care Services Referral ID:[id number] Provider Name:[facility] Address 1:[address] [place] [address] Address 2: City:[place] Selection Factors: State:[place] Patient Contact Information Contact Name:IOANA Relationship:Other Address: Home Phone: City: [facility] Phone: State/Zip Code: Email: Financial Information Financial Class:Medicare Primary Plan Desc:MEDICARE INPATIENT Primary Plan Number:[id number] Secondary Plan Desc:MED[place] Secondary Plan Number:[id number] Assessment Information [facility] CM Progress Note CM Note CM Note Notes: Chart reviewed. Per therapy SNF is recommendation for dc plan. Met with patient who adamantly refuses to go to SNF at this point. He states surgery just yesterday and he needs some time. He is agreeable to [facility]. He has no preference regarding [employer] company, he shares he lives alone and is in stages of unpacking as he recently moved into new apartment that has no stairs. Will at minimum need PT and OT at home. Referral to [facility]. CM to follow. Plan: SNF rehab versus home with home health. Date Signed: 09/04/2017 10:27 AM Electronically Signed By:Balbina Etienne RN [facility] CM Progress Note CM Note CM Note Notes: Pt medically stable for d/c with [facility] PT/OT. Orders to be obtained via [employer]. Date Signed: 09/05/2017 02:48 PM Electronically Signed By:MORRIS Arce Intervention Information
== END 2017-09-05 16:01 | disposition home health service (06) | DRG 470 ==
LOC: F3N 13:05
PROVIDERS: ADMIT Orthopaedic Surgery; ATTEND Orthopaedic Surgery
PROC: 0SR904Z Replacement of Right Hip Joint with Ceramic on Polyethylene Synthetic Substitute, Open Approach (ICD-10-PCS; principal; 2017-09-03 14:45)
DX: M87.9 Osteonecrosis, unspecified (principal); Z96.642 Presence of left artificial hip joint; I10 Essential (primary) hypertension; J44.9 Chronic obstructive pulmonary disease, unspecified; I73.9 Peripheral vascular disease, unspecified
CPT/HCPCS: 97110-GP; 97116-GP; 97162-GP; 97166-GO; 97535-GO; G8978-GP-CK; G8979-GP-CJ; G8987-GO-CK; G8988-GO-CI; G8989-GO-CJ; J0690; J1885; J2175; J2250; J2704; J3010

== ENCOUNTER → 2017-10-14 | Outpatient (CLI) | payer OTHER, MEDICAID | LOC: FIMAGING 10:05 | PROVIDERS: ATTEND Orthopaedic Surgery | DX: I82.491 Acute embolism and thrombosis of other specified deep vein of right lower extremity (principal) ==